=== PATIENT | female | born 1965 | race American Indian/Alaskan Native ===

== ENCOUNTER 2017-08-26 21:12 | Emergency (ER) | payer OTHER ==
[2017-08-26 21:44] VITALS: BP 118/81; PULSE 60; RESP 20; TEMP 98.6; O2SAT 100
[2017-08-26] MEDS ORDERED: Albuterol 0.083% Inhal Sol (2.5 mg/3 mL) UD ONE ×2 (21:57→22:30)
[2017-08-26] MEDS: Albuterol 0.083% Inhal Sol (2.5 mg/3 mL) UD INH SCH ×2 (21:59→22:36)
--- NOTE | 2017-08-26 22:16 | C.PDOC ---
History Of Present Illness Pt with c/o of congested cough x 2 days associated with voice hoarseness. Today pt c/o of SOB and chest tightness and she used her albuterol inh with no relief. Pt denies fever, chest pain, back pain, sore throat Time Seen by Provider: 08/26/17 21:45 Chief Complaint (Nursing): Cough, Cold, Congestion History Per: Patient History/Exam Limitations: no limitations Sick Contacts (Context): None Associated Symptoms: Cough. denies: Fever, Sore Throat, Nasal Congestion, Vomiting Ear Symptoms: Bilateral: None Past Medical History Vital Signs: Last Vital Signs Temp 98.6 F 08/26/17 21:41 Pulse 60 08/26/17 21:41 Resp 20 08/26/17 21:41 BP 118/81 08/26/17 21:41 Pulse Ox 100 08/26/17 22:31 - Medical History PMH: Anxiety, Asthma, HTN, Hyperlipidemia - [facility] Procedures FLUOROSCOPY OF MULT COR ART USING L OSM CONTRAST (06/06/16) FLUOROSCOPY OF RIGHT AND LEFT HEART USING L OSM CONTRAST (06/06/16) MEASURE OF CARDIAC SAMPL & PRESSURE, L HEART, PERC APPROACH (06/06/16) Family History: States: Unknown Family Hx - Social History Hx Tobacco Use: No Hx Alcohol Use: Yes (socially) Hx Substance Use: No - Immunization History Hx Tetanus Toxoid Vaccination: Yes Hx Influenza Vaccination: Yes Hx Pneumococcal Vaccination: Yes Review Of Systems Constitutional: Negative for: Fever ENT: Positive for: Other (hoarseness). Negative for: Throat Pain Cardiovascular: Negative for: Chest Pain Respiratory: Positive for: Cough, Shortness of Breath, Wheezing Physical Exam - Physical Exam Appears: Well, Non-toxic Eye(s): bilateral: Normal Inspection, PERRL, EOMI Throat: Normal, No Erythema, No Exudate Chest: Symmetrical Cardiovascular: Rhythm Regular Respiratory: Decreased Breath Sounds, No Accessory Muscle Use, Wheezing (exp) Neurological/Psych: Oriented x3 ED Course And Treatment O2 Sat by Pulse Oximetry: 100 Pulse Ox Interpretation: Normal Progress Note: Pt received albuterol nebs x 3, prednisone PO. Pt reports improved pain and lungs CTA, Will follow up with PMD. Return precautions discussed Reassessment Condition: Improved Disposition Counseled Patient/Family Regarding: Diagnosis, Rx Given - Disposition Referrals: Nishant Troncoso MD [Medical Doctor] - Disposition: HOME/ ROUTINE Disposition Time: 22:54 Condition: STABLE Additional Instructions: Increase PO fluids Take meds as directed Return to ER if worse Prescriptions: Albuterol HFA [Ventolin HFA 90 mcg/actuation (8 g)] 2 puff IH [id number] #1 inhaler Cetirizine HCl [Zyrtec] 10 mg PO DAILY #20 capsule predniSONE [Prednisone] 40 mg PO DAILY #8 tab Instructions: Viral Upper Respiratory Infection, Adult (DC) Forms: [employer] (Kinyarwanda) - Clinical Impression Clinical Impression: Bronchospasm, Upper respiratory infection
[2017-08-26] MEDS ORDERED: Albuterol 0.083% Inhal Sol (2.5 mg/3 mL) UD IH STA (22:31)
== END 2017-08-26 23:02 | disposition home or self-care (01) ==
LOC: C.ER 21:12
DX: J98.01 Acute bronchospasm (principal); J06.9 Acute upper respiratory infection, unspecified